=== PATIENT | female | born 1980 | race Caucasian/White ===

== ENCOUNTER → 2016-12-06 | Outpatient (CLI) | payer OTHER | LOC: HEART CORB 14:49 | DX: R03.0 Elevated blood-pressure reading, without diagnosis of hypertension (principal); R00.2 Palpitations; R00.0 Tachycardia, unspecified | CPT/HCPCS: 93306 ==

== ENCOUNTER 2016-12-15 09:46 | Emergency (ER) | payer OTHER ==
[2016-12-15 10:36] LABS: RED BLOOD COUNT 4.24 M/UL (4.00-5.10); WHITE BLOOD COUNT 16.8 K/UL (4.5-11.0)
[2016-12-15 11:25] LABS: BUN/CREATININE RATIO 11 (0-10)
== END 2016-12-15 17:50 | disposition short-term general hospital (02) ==
LOC: ER1 09:46
PROVIDERS: Emergency Medicine
DX: N12 Tubulo-interstitial nephritis, not specified as acute or chronic (principal); N13.30 Unspecified hydronephrosis; D72.829 Elevated white blood cell count, unspecified; F17.200 Nicotine dependence, unspecified, uncomplicated; Z88.2 Allergy status to sulfonamides; Z79.899 Other long term (current) drug therapy
CPT/HCPCS: 36415; 71010; 80053; 81001; 82550; 82553; 83605; 83690; 83874; 84484; 85025; 87040; 93005; 96361; 96365; 96375; 99285; J0696; J1580; J2405; J7030; J7050

== ENCOUNTER → 2017-02-02 | Outpatient (CLI) | payer OTHER | LOC: HEART CORB 01-12 15:00 | DX: I73.9 Peripheral vascular disease, unspecified (principal) ==